=== PATIENT | female | born 1955 | race Caucasian/White ===

== ENCOUNTER 2017-07-12 00:58 | Emergency (ER) | payer SELFPAY ==
[2017-07-12] MEDS ORDERED: Ibuprofen 200 MG TAB ONE (01:20)
== END 2017-07-12 01:30 | disposition home or self-care (01) ==
LOC: BURERS 00:58
DX: S93.432A Sprain of tibiofibular ligament of left ankle, initial encounter (principal); G43.909 Migraine, unspecified, not intractable, without status migrainosus; F17.210 Nicotine dependence, cigarettes, uncomplicated; W01.10XA Fall on same level from slipping, tripping and stumbling with subsequent striking against unspecified object, initial encounter
CPT/HCPCS: 29540

== ENCOUNTER 2019-01-08 21:26 | Emergency (ER) | payer SELFPAY ==
--- NOTE | 2019-01-08 23:03 | RAD ---
RIGHT FOREARM TWO VIEWS: Date: 01-08-19 FINDINGS: The radius and ulna appear intact. No fractures were appreciated. No joint effusion was seen at the e lbow. IMPRESSION: No acute finding. POS: HOME
== END 2019-01-08 21:50 | disposition home or self-care (01) ==
LOC: BURERS 21:26
DX: S93.602A Unspecified sprain of left foot, initial encounter (principal); S20.211A Contusion of right front wall of thorax, initial encounter; S50.11XA Contusion of right forearm, initial encounter; G43.909 Migraine, unspecified, not intractable, without status migrainosus; F17.210 Nicotine dependence, cigarettes, uncomplicated; W18.30XA Fall on same level, unspecified, initial encounter

== ENCOUNTER 2019-06-09 12:53 | Emergency (ER) | payer SELFPAY ==
--- NOTE | 2019-06-09 15:36 | RAD ---
LUMBAR SPINE 3 VIEWS: Date: 06/09/2019 Minimal curvature of the spine could be positional. No acute fracture seen, however, there is evidenc e of an old injury to the anterior superior corner of L4. This may constitute a so-called limbus ashley tebra. It is obviously not recent. The disc spaces all are normal in height. There is some minimal s clerosis of the inferior end plate of L1 and is probably not acute. Minor degenerative changes are pr esent in the spine. The SI joints appear normal. IMPRESSION: Old traumatic change to the anterior superior corner of L4. No acute bony findings. POS: HOME
== END 2019-06-09 14:43 | disposition home or self-care (01) ==
LOC: BURERS 12:53
DX: M54.42 Lumbago with sciatica, left side (principal); R03.0 Elevated blood-pressure reading, without diagnosis of hypertension; G43.909 Migraine, unspecified, not intractable, without status migrainosus; F17.210 Nicotine dependence, cigarettes, uncomplicated; W18.2XXA Fall in (into) shower or empty bathtub, initial encounter
CPT/HCPCS: 72100

== ENCOUNTER 2025-02-06 20:28 | Emergency (ER) | payer MEDICARE, SELFPAY ==
[2025-02-06] MEDS ORDERED: Ibuprofen 800 MG TAB ONE (20:49)
== END 2025-02-06 21:45 | disposition home or self-care (01) ==
LOC: BURERS 20:28
DX: S63.501A Unspecified sprain of right wrist, initial encounter (principal); S63.601A Unspecified sprain of right thumb, initial encounter; F17.210 Nicotine dependence, cigarettes, uncomplicated; W21.06XA Struck by volleyball, initial encounter; Y93.68 Activity, volleyball (beach) (court)
CPT/HCPCS: 99283